=== PATIENT | male | born 1950 | race African-American/Black ===

== ENCOUNTER 2019-07-17 19:34 | Observation (INO) | payer MEDICARE ==
--- NOTE | 2019-07-17 19:39 | PDOC ---
Rapid Medical Evaluation Time Seen by Provider: 07/17/19 19:39 Medical Evaluation: 07/17/19 19:39 I have performed a brief in-person evaluation of this patient. The patient presents with a chief complaint of: chest pain Pertinent physical exam findings:stable and in NAD, non-focal I have ordered the following:labs, ekg The patient will proceed to the ED for further evaluation.
[2019-07-17 19:43] VITALS: BMI 35.4
[2019-07-17 21:23] LABS: BASO % 0.9 % (0-2.0); EOS % 6.8 % (0-4.5); HEMATOCRIT 38.9 % (35.4-49); HEMOGLOBIN 12.9 GM/dL (11.7-16.9); LYMPH % 39.9 % (8-40); MCH 28.2 pg (25.7-33.7); MCHC 33.1 g/dl (32.0-35.9); MEAN CELL VOLUME 85.3 fl (80-96); MEAN PLT VOLUME 10.3 fl (7.5-11.1); MONO % 8.4 % (3.8-10.2); PLATELET COUNT 142 K/MM3 (134-434); RBC 4.55 M/mm3 (4.00-5.60); RDW 13.8 % (11.9-15.9); WHITE BLOOD COUNT 5.4 K/mm3 (4.0-10.0)
[2019-07-17 21:40] LABS: INR 0.94 (0.83-1.09); PROTHROMBIN TIME (PATIENT) 11.1 SEC (9.7-13.0)
[2019-07-17 21:43] LABS: ACTIVATED PTT 35.7 SECONDS (25.2-36.5)
[2019-07-17 21:46] LABS: ALBUMIN 3.4 g/dl (3.4-5.0); ALK PHOS 100 U/L (45-117); ANION GAP 3 MMOL/L (8-16); BILIRUBIN,TOTAL 0.3 mg/dL (0.2-1); BLOOD UREA NITROGEN 8.5 mg/dL (7-18); CALCIUM 9.1 mg/dL (8.5-10.1); CHLORIDE 107 mmol/L (98-107); CO2 32 mmol/L (21-32); GLUCOSE,RANDOM 86 mg/dL (74-106); POTASSIUM 4.2 mmol/L (3.5-5.1); SGOT/AST 9 U/L (15-37); SGPT/ALT 19 U/L (13-61); SODIUM 142 mmol/L (136-145); TOT PROT 6.5 g/dl (6.4-8.2)
--- NOTE | 2019-07-17 22:20 | PDOC ---
History of Present Illness - General Chief Complaint: Chest Pain Stated Complaint: CHEST PAINS Time Seen by Provider: 07/17/19 19:39 History Source: Patient, Family Exam Limitations: No Limitations - History of Present Illness Initial Comments: 07/17/19 22:16 Simone Urbina is a 69M with PMH HTN, NIDDM presenting with 3 days of R sided chest pain. Patient has had a longstanding history of a sensation of pin pricks inside his R chest that comes and goes, and which he has thought of as gas and ignored. However, last 3 days has had multiple episodes concerning him enough to come to ED. Denies any inciting triggers or times of the day pain is related to, denies feeling the sensation being related to before or after eating. Denies shortness of breath, weakness, dizziness, abd pain. Says that sometimes his heart skips a beat, able to walk 2 blocks without getting tired, denies LE edema, denies injury to chest. Patient is from [facility] and arrived June 28, drives a lot. Heart has never been evaluated in the past for this. NKDA, no surgeries, denies smoking history, alcohol rarely. Past History - Past Medical History Allergies/Adverse Reactions: Allergies Allergy/AdvReac Type Severity Reaction Status Date / Time No Known Allergies Allergy Verified 07/18/19 02:11 Home Medications: Ambulatory Orders Metformin HCl [Metformin HCl ER] 500 mg PO BID 07/18/19 Ramipril [Altace] 5 mg PO DAILY 07/18/19 - Suicide/Smoking/Psychosocial Hx Smoking History: Former smoker Have you smoked in the past 12 months: Yes Information on smoking cessation initiated: No Hx Alcohol Use: No Drug/Substance Use Hx: No Cardiac Specific PMH - Complaint Specific PMHX Abdominal Aortic Aneurysm: No Angina: No Cardiac Arrhythmia: No Cardiac Stent: No GERD: No Myocardial Infarction: No Pacemaker: No Pulmonary Embolus: No Valvular Heart Disease: No Peripheral Vascular Disease: No Review of Systems - Review of Systems Able to Perform ROS?: Yes Is the patient limited Frisian proficient: No Constitutional: No: Symptoms Reported HEENTM: No: Symptoms Reported Respiratory: No: Symptoms reported Cardiac (ROS): Yes: Chest Pain, Irregular Heart Rate. No: Lightheadedness, Chest Tightness ABD/GI: No: Constipated, Diarrhea, Nausea, Vomiting : No: Burning, Dysuria, Discharge, Frequency, Flank Pain, Hematuria, Incontinence, Pain, Urgency Musculoskeletal: No: Back Pain, Neck Pain Integumentary: No: Symptoms Reported Neurological: No: Headache, Numbness, Paresthesia, Tingling Endocrine: No: Symptoms Reported Hematologic/Lymphatic: No: Symptoms Reported All Other Systems: Reviewed and Negative *Physical Exam - Vital Signs Last Vital Signs Temp Pulse Resp BP Pulse Ox 98.8 F 69 19 154/62 99 07/17/19 19:38 07/17/19 19:38 07/17/19 19:38 07/17/19 19:38 07/18/19 01:30 - Physical Exam General Appearance: Yes: Nourished, Appropriately Dressed, Obese. No: Apparent Distress HEENT: positive: EOMI, Normal ENT Inspection, Normal Voice, Symmetrical, Pharynx Normal. negative: Scleral Icterus (R), Scleral Icterus (L), Pharyngeal Erythema, Tonsillar Exudate, Tonsillar Erythema, Nasal Congestion, Rhinorrhea Neck: positive: Trachea midline, Normal Thyroid, Supple. negative: Tender, Lymphadenopathy (R), Lymphadenopathy (L) Respiratory/Chest: positive: Lungs Clear, Normal Breath Sounds, Respiratory Distress, Other (no obvious signs of injury to chest). negative: Chest Tender, Decreased Breath Sounds, Crackles, Rales, Rhonchi Cardiovascular: positive: Regular Rate, Irregularly Irregular (appreciated some possible afib). negative: Edema Gastrointestinal/Abdominal: positive: Normal Bowel Sounds, Soft, Protuberent. negative: Tender, Organomegaly, Hernia Musculoskeletal: positive: Normal Inspection. negative: CVA Tenderness, Decreased Range of Motion, Muscle Spasm, Vertebral Tenderness Extremity: positive: Normal Capillary Refill, Normal Inspection, Normal Range of Motion. negative: Tender Integumentary: positive: Normal Color, Dry, Warm Neurologic: positive: Fully Oriented, Alert, Normal Mood/Affect, Normal Response Heart Score/ECG Review - History History: Moderately suspicious - Electrocardiogram EKG: Normal - Age Age: >/= 65 - Risk Factors Risk Factors Heart Score: Yes Hx Hypertension, Yes Hx Diabetes Based on the list above the patient has:: >/=3 risk factors or Hx atherosclerotic disease - Troponin Troponin: </= normal limit - Score Heart Score - Total: 5 ED Treatment Course - LABORATORY CBC & Chemistry Diagram: 07/17/19 20:58 07/17/19 20:58 - ADDITIONAL ORDERS Additional order review: Laboratory Results 07/17/19 07/17/19 20:58 20:58 PT with INR 11.10 INR 0.94 PTT (Actin FS) 35.7 Sodium 142 Potassium 4.2 Chloride 107 Carbon Dioxide 32 Anion Gap 3 L BUN 8.5 Creatinine 1.0 Est GFR (CKD-EPI)AfAm 89.86 Est GFR (CKD-EPI)NonAf 77.54 Random Glucose 86 Calcium 9.1 Total Bilirubin 0.3 AST 9 L ALT 19 Alkaline Phosphatase 100 Creatine Kinase 84 Troponin I < 0.02 Total Protein 6.5 Albumin 3.4 07/17/19 20:58 RBC 4.55 MCV 85.3 MCHC 33.1 RDW 13.8 MPV 10.3 Neutrophils % 44.0 Lymphocytes % 39.9 Monocytes % 8.4 Eosinophils % 6.8 H Basophils % 0.9 - RADIOLOGY Radiology Studies Ordered: Category Date Time Status CHEST X-RAY PORTABLE* [RAD] Stat Radiology 07/17/19 21:28 Completed Medical Decision Making - Medical Decision Making 07/17/19 22:16 Simone Urbina is a 69M with PMH HTN, NIDDM presenting with 3 days of chest pain. Patient presentation concerning for VA vs. AAA vs. GERD vs. ACS vs. PE vs. muscle spasm. Will evaluate via: CMP CBC CP ECG CXR Initial troponins negative. ECG no ST elevations. However, has DM, obesity, HTN , and history concerning for cardiac issues, has not had good f/u care. HEART score 5, needs overnight observation for repeat troponins and ECHO. No electrolyte imbalance noted on labs concerning for muscle spasms, etc. Repeat ECG performed due to baseline artifact on 1st ECG, no concerning findings notable. 07/18/19 01:34 Discussed admission to tele/obs with Dr. Hook under Dr. Borrego. *DC/Admit/Observation/Transfer Diagnosis at time of Disposition: Chest pain Qualifiers: Chest pain type: other chest pain Qualified Code(s): R07.89 - Other chest pain - Discharge Dispostion Decision to Admit order: Yes - Referrals - Patient Instructions - Post Discharge Activity
--- NOTE | 2019-07-17 22:56 | PDOC ---
Attending Attestation - Resident Resident Name: HanschapinScott - ED Attending Attestation I have performed the following: I have examined & evaluated the patient, The case was reviewed & discussed with the resident, I agree w/resident's findings & plan - HPI HPI: 07/17/19 22:51 see resident hpi - Physicial Exam PE: 07/17/19 22:52 agree with resident exam - Medical Decision Making 07/17/19 22:54 69 yo male with chest pain and elevated Heart score thought patient has recent travel exam, history and evaluation do not suggest PE CXR showed [facility] plan for admit to medical service 07/17/19 22:58
--- NOTE | 2019-07-18 00:34 | HP ---
CHIEF COMPLAINT: R sided chest pain PCP: In [facility] HISTORY OF PRESENT ILLNESS: Simone Urbina is a 69 year old male with a past medical history of hypertension , diabetes, cataracts, "prostate issue" who presented to the ED with 3 days worth of R sided chest pain. The patient stated that over the last 3 days, he had been having sudden onset right sided chest pain that feels like a shock and sharp pain on his chest that causes him a brief moment of weakness and then becomes a dull pain and goes away in approximately 5 minutes. The pain occurs anywhere from 1 to 3 times per day and is not associated with any particular time of the day and not worsened with movement. Pain is occasionally worsened with food but not always directly associated with eating. He states that he has had this kind of pain before that he attributed to gas several months prior however now he states that the pain is worse. States that the pain is 5-6/10 at its worst. Pointed to the right side of his chest, midclavicular line when asked to point to where the pain is the worst when he gets it. He has not taken anything for alleviation of pain. Denied any recent trauma to the area or strenuous activity. Denied any episodes of syncope, loss of consciousness, falls. Does not have associated symptoms of fever, chills, shortness of breath, abdominal pain, nausea, vomiting, headaches, visual changes, dysuria, hematuria , increased belching or gas. States he does have urinary frequency and takes a medication he is unsure of for a prostate issue. ER course was notable for: (1) EKG NSR with flattening of T waves in all leads except V1, V2, V3, V4 (2) negative troponins (3) CXR with no acute pathology Recent Travel: recently travelled from [facility] to visit steven barrett on June 28 PAST MEDICAL HISTORY: as above PAST SURGICAL HISTORY: denies Social History: Smoking: former smoker, quit more than 20 years ago Alcohol: socially, rarely Drugs: denies Currently visiting sister in [place], lives in [facility] Family History: Mother- HTN Allergies No Known Allergies Allergy (Verified 07/17/19 19:43) HOME MEDICATIONS: REVIEW OF SYSTEMS CONSTITUTIONAL: brief weakness episodes Absent: fever, chills, diaphoresis, malaise, loss of appetite, weight change HEENT: Absent: rhinorrhea, nasal congestion, throat pain, throat swelling, difficulty swallowing, visual changes CARDIOVASCULAR: intermittent chest pain Absent: syncope, palpitations, irregular heart rate, lightheadedness, peripheral edema RESPIRATORY: Absent: cough, shortness of breath, dyspnea with exertion, orthopnea, wheezing, GASTROINTESTINAL: Absent: abdominal pain, abdominal distension, nausea, vomiting, diarrhea, constipation, GENITOURINARY: frequency at night Absent: dysuria, urgency, hesitancy, hematuria, flank pain MUSCULOSKELETAL: Absent: myalgia, arthralgia, joint swelling, back pain, neck pain SKIN: Absent: rash, itching, pallor HEMATOLOGIC/IMMUNOLOGIC: Absent: easy bleeding, easy bruising, lymphadenopathy, frequent infections ENDOCRINE: Absent: unexplained weight gain, unexplained weight loss, heat intolerance, cold intolerance NEUROLOGIC: Absent: headache, focal weakness or paresthesias, dizziness, unsteady gait, seizure, mental status changes, PSYCHIATRIC: Absent: anxiety, depression, suicidal or homicidal ideation, hallucinations. PHYSICAL EXAMINATION Vital Signs - 24 hr 07/17/19 19:38 Temperature 98.8 F Pulse Rate 69 Respiratory 19 Rate Blood Pressure 154/62 O2 Sat by Pulse 99 Oximetry (%) GENERAL: Awake, alert, and fully oriented, in no acute distress. HEAD: Normal with no signs of trauma. EYES: Pupils equal, round and reactive to light, extraocular movements intact, sclera anicteric, conjunctival injection. EARS, NOSE, THROAT: Oropharynx clear without exudates. Moist mucous membranes. NECK: Normal range of motion, supple without lymphadenopathy, JVD. LUNGS: Breath sounds equal, clear to auscultation bilaterally. No wheezes, and no crackles. No accessory muscle use. HEART: Regular rate and rhythm, normal S1 and S2 without murmur, rub. ABDOMEN: Soft, obese, nontender, normoactive bowel sounds, no guarding, no rebound, no masses. Increased bowel sounds in LUQ. MUSCULOSKELETAL: Normal range of motion at all joints. No bony deformities or tenderness. No CVA tenderness. UPPER EXTREMITIES: 2+ pulses, warm, well-perfused. No cyanosis. No clubbing. No peripheral edema. LOWER EXTREMITIES: 1+ pulses, warm, well-perfused. No calf tenderness. 1+ peripheral edema bilaterally. NEUROLOGICAL: Cranial nerves II-XII intact. 5/5 muscle strength bilaterally upper and lower extremities. PSYCHIATRIC: Cooperative. Good eye contact. Appropriate mood and affect. SKIN: Warm, dry, normal turgor, dry skin on feet. Laboratory Results - last 24 hr 07/17/19 07/17/19 07/17/19 20:58 20:58 20:58 WBC 5.4 RBC 4.55 Hgb 12.9 Hct 38.9 MCV 85.3 MCH 28.2 MCHC 33.1 RDW 13.8 Plt Count 142 MPV 10.3 Absolute Neuts (auto) 2.4 Neutrophils % 44.0 Lymphocytes % 39.9 Monocytes % 8.4 Eosinophils % 6.8 H Basophils % 0.9 Nucleated RBC % 0 PT with INR 11.10 INR 0.94 PTT (Actin FS) 35.7 Sodium 142 Potassium 4.2 Chloride 107 Carbon Dioxide 32 Anion Gap 3 L BUN 8.5 Creatinine 1.0 Est GFR (CKD-EPI)AfAm 89.86 Est GFR (CKD-EPI)NonAf 77.54 Random Glucose 86 Calcium 9.1 Total Bilirubin 0.3 AST 9 L ALT 19 Alkaline Phosphatase 100 Creatine Kinase 84 Troponin I < 0.02 Total Protein 6.5 Albumin 3.4 EKG--> NSR with flattening of T waves in all leads except V1, V2, V3, V4, QTc 424 ASSESSMENT/PLAN: Simone Urbina is a 69 year old male with a past medical history of hypertension , diabetes, cataracts, "prostate issue" admitted after a several day history of chest pain to rule out acute coronary syndrome in the context of the patient's multiple medical comorbidities. Chest Pain HTN HLD DM Chest Pain - right sided chest pain with negative troponins, clear chest x-ray, clinically low suspicion for ACS - Heart SCORE 4, age >65, 3+ risk factors - admitted for rule out of ACS - first EKG with no significant findings attributable to ACS - repeat EKG in the morning - first troponin negative, continue to trend - echo - cardiology consultation to consider stress test, patient never had one previously - pt will be returning to [facility] within next 2 weeks, can consider performing stress test at this facility, outpatient, or in [facility] - lipids, A1c to assess if adequately controlled for ACS risk factors - liver U/s to rule out gallstones HTN - on BP medication at home - family will bring in medication in the morning to reconcile - HCTZ 12.5mg until patient's home meds reconciled HLD - on cholesterol medication, family will bring in medication in the morning to reconcile DM - BGM ACHS - ISS FEN - no standing fluids - continue to monitor electrolytes and replete as necessary - diabetic sodium controlled diet Prophylaxis - heparin 5000 units subq tid Code - full code JAY RAMOS DO - PGY-1 Visit type - Emergency Visit Emergency Visit: Yes ED Registration Date: 07/17/19 Care time: The patient presented to the Emergency Department on the above date and was hospitalized for further evaluation of their emergent condition. - New Patient This patient is new to me today: Yes Date on this admission: 07/18/19 - Critical Care Critical Care patient: No
--- NOTE | 2019-07-18 01:01 | PN ---
Teaching Attending Note Name of Resident: Selwyn Saez ATTENDING PHYSICIAN STATEMENT I saw and evaluated the patient. Chart, data, imaging reviewed. I reviewed the resident's note and discussed the case with the resident. I agree with the resident's findings and plan as documented. SUBJECTIVE: 69yo man from [facility] with htn, dm, former smoker (quit 20 years ago) obesity c/ o 3 days of intermittent right chest pressure like pain, no radiation worse after eating, no relation to exercise. Denied family history of cardiac disease. 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 No shortness of breath, nausea, or vomiting. OBJECTIVE: Last Vital Signs Temp Pulse Resp BP Pulse Ox 98.8 F 69 19 154/62 99 07/17/19 19:38 07/17/19 19:38 07/17/19 19:38 07/17/19 19:38 07/17/19 19:38 general- nad, appears comfortable cor-s1+s2+ rrr, no murmurs appreciated chest - clear lung sounds b/l abdomen-obese, no ruq tenderness lower ext -1+ pitting edema in mcdonald b/l Abnormal Lab Results 07/17/19 07/17/19 20:58 20:58 Eosinophils % 6.8 H Anion Gap 3 L AST 9 L imaging ,ekg reviewed ASSESSMENT AND PLAN: atypical chest pain, heart score- 4. R/o out gallstones as pain worse after eating. LFTs wnl. ekg with out ischemic changes. Patient currently denied any pain. -tele/obs -echo -trend trops -cardiology eval - for cardiac stress test -liver u/s to r/o gallstones #DM -send a1c -insulin sliding scale #Eosinophilia -trend eos -no symptoms or evidence of parasitic infection at this time #HTN -HCTZ dvt ppx- heparin sc
[2019-07-18] MEDS: INSULIN SLIDING SCALE (NOVOLOG) 1 VIAL SQ SCH ×3 (06:38→17:19)
[2019-07-18 07:35] LABS: EOS % 8.2 % (0-4.5); HEMATOCRIT 38.8 % (35.4-49); HEMOGLOBIN 13.2 GM/dL (11.7-16.9); LYMPH % 37.4 % (8-40); MCH 28.7 pg (25.7-33.7); MEAN CELL VOLUME 84.4 fl (80-96); MEAN PLT VOLUME 10.3 fl (7.5-11.1); MONO % 8.2 % (3.8-10.2); NEUT % 45.2 % (42.8-82.8); PLATELET COUNT 135 K/MM3 (134-434); RDW 13.7 % (11.9-15.9); WHITE BLOOD COUNT 4.8 K/mm3 (4.0-10.0)
[2019-07-18 08:02] LABS: ANION GAP 8 MMOL/L (8-16); BLOOD UREA NITROGEN 6.3 mg/dL (7-18); CALCIUM 8.5 mg/dL (8.5-10.1); CHLORIDE 104 mmol/L (98-107); CHOLESTEROL 117 mg/dL (50-200); CO2 32 mmol/L (21-32); CREATININE 0.8 mg/dL (0.55-1.3); GLUCOSE,RANDOM 91 mg/dL (74-106); HDL CHOLESTEROL 39 mg/dL (40-60); MAGNESIUM 2.3 mg/dL (1.8-2.4); POTASSIUM 3.8 mmol/L (3.5-5.1); SODIUM 144 mmol/L (136-145); TRIGLYCERIDES 56 mg/dL (0-150)
[2019-07-18] MEDS ORDERED: HYDROCHLOROTHIAZIDE 12.5 MG CAPSULE (FP) PO SCH (10:00)
[2019-07-18] MEDS ORDERED: ENOXAPARIN NA (PORCINE) 40 MG/0.4 ML DISP.SYRIN SQ SCH (10:00)
[2019-07-18] MEDS ORDERED: HYDROCHLOROTHIAZIDE 25 MG TABLET (FP) ONE (10:05)
[2019-07-18] MEDS ORDERED: HEPARIN NA (PORCINE) 5,000 UNITS/ML 1ML VIAL ONE (10:06)
[2019-07-18 12:24] VITALS: TEMP 97.8
--- NOTE | 2019-07-18 12:24 | EKG ---
Test Reason : Blood Pressure : / mmHG Vent. Rate : 060 BPM Atrial Rate : 060 BPM P-R Int : 142 ms QRS Dur : 082 ms QT Int : 424 ms P-R-T Axes : 059 017 050 degrees QTc Int : 424 ms NORMAL SINUS RHYTHM WITH SINUS ARRHYTHMIA NONSPECIFIC T WAVE ABNORMALITY ABNORMAL ECG WHEN COMPARED WITH ECG OF 17-JUL-2019 20:02, NO SIGNIFICANT CHANGE WAS FOUND Confirmed by YUMIKO AGUILAR, JUAN ([id number]) on 07/18/2019 12:24:02 PM Referred By: Confirmed By:JUAN CALDERON MD
--- NOTE | 2019-07-18 12:25 | EKG ---
Test Reason : Blood Pressure : / mmHG Vent. Rate : 060 BPM Atrial Rate : 060 BPM P-R Int : 136 ms QRS Dur : 078 ms QT Int : 402 ms P-R-T Axes : 059 001 027 degrees QTc Int : 402 ms NORMAL SINUS RHYTHM NONSPECIFIC T WAVE ABNORMALITY ABNORMAL ECG NO PREVIOUS ECGS AVAILABLE Confirmed by YUMIKO AGUILAR, JUAN ([id number]) on 07/18/2019 12:25:13 PM Referred By: Confirmed By:JUAN CALDERON MD
[2019-07-18] MEDS: HEPARIN NA (PORCINE) 5,000 UNITS/ML 1ML VIAL SQ SCH ×2 (12:42→14:43)
[2019-07-18] MEDS ORDERED: REGADENOSON 0.4 MG/5 ML PRE-FILLED SYRINGE IVPUSH ONE ×2 (13:00)
[2019-07-18 14:44] VITALS: BP 130/73; PULSE 65
--- NOTE | 2019-07-18 14:58 | ECHO ---
Name: ALEE CIFUENTES Exam:Adult Echocardiogram Study Date: 07/18/2019 10:10 AM Age: 69 yrs Reason For Study: Chest pain Height: 69 in Weight: 240 lb BSA: 2.2 m2 MMode/2D Measurements & Calculations IVSd: 1.1 cm Ao root diam: 3.1 cm LVIDd: 4.6 cm LA dimension: 4.0 cm LVIDs: 3.0 cm LVPWd: 0.95 cm EDV(Teich): 97.3 ml LVOT diam: 2.2 cm ESV(Teich): 33.7 ml Doppler Measurements & Calculations MV E max terry: 96.7 cm/sec Ao V2 max: 132.6 cm/sec MV A max terry: 22.2 cm/sec Ao max P.0 mmHg MV E/A: 4.4 Ao V2 mean: 90.0 cm/sec MV dec time: 0.23 sec Ao mean P.8 mmHg Ao V2 VTI: 33.6 cm SIMONE(I,D): 3.1 cm2 SIMONE(V,D): 2.9 cm2 LV V1 max P.0 mmHg SV(LVOT): 104.6 ml LV V1 mean P.2 mmHg LV V1 max: 100.2 cm/sec LV V1 mean: 71.0 cm/sec LV V1 VTI: 27.2 cm TR max terry: 222.9 cm/sec Med Peak E' Terry: 4.5 cm/sec TR max P.2 mmHg Med E/e': 21.6 Lat Peak E' Terry: 7.8 cm/sec Lat E/e': 12.4 Procedure A complete two-dimensional transthoracic echocardiogram was performed (2D, M-mode, Doppler and color flow Doppler). Left Ventricle The left ventricular size, thickness and function are normal. The left ventricular ejection fraction is normal. Ejection Fraction = 60-65%. The left ventricular wall motion is normal. Right Ventricle The right ventricle is normal in size and function. Atria Normal left and right atrial size and function. Mitral Valve There is no mitral regurgitation noted. Tricuspid Valve There is trace tricuspid regurgitation. There was insufficient TR detected to calculate RV systolic p ressure. Aortic Valve No hemodynamically significant valvular aortic stenosis. No aortic regurgitation is present. Pulmonic Valve There is no pulmonic valvular regurgitation. Great Vessels The aortic root is normal size. Pericardium/Pleura There is no pericardial effusion. Interpretation Summary The left ventricular size, thickness and function are normal The right ventricle is normal in size and function. There is trace tricuspid regurgitation. MD Josep Price 07/18/2019 02:57 PM
--- NOTE | 2019-07-18 15:14 | CON.CARD ---
Consult Consult Specialty:: Cardiology Referred by:: Larry Borrego Reason for Consultation:: Chest pain - History of Present Illness Chief Complaint: chest pain History of Present Illness: 69 year old male with a pmhx of dm, htn, and hld who presents with chest pain. Patient having intermittent right sided chest pain mild that comes and goes. Not exertional and non radiating. No sob or palpitations associated. Some dyspnea on exertion noted as well. No pnd, orthopnea, or edema. No palpitations. No near syncope. - History Source History Provided By: Patient, Medical Record - Alcohol/Substance Use Hx Alcohol Use: No - Smoking History Smoking history: Former smoker Have you smoked in the past 12 months: Yes Home Medications - Allergies Allergies/Adverse Reactions: Allergies Allergy/AdvReac Type Severity Reaction Status Date / Time ibuprofen Allergy Verified 07/18/19 15:02 - Home Medications Home Medications: Ambulatory Orders Acetaminophen 500 mg PO QID 07/18/19 Amlodipine Besylate [Norvasc -] 10 mg PO DAILY 07/18/19 Aspirin Coated [Ecotrin -] 81 mg PO DAILY 07/18/19 Atorvastatin Ca [Lipitor] 40 mg PO HS 07/18/19 Doxazosin Mesylate 2 mg PO DAILY 07/18/19 Metformin HCl [Metformin HCl ER] 500 mg PO BID 07/18/19 Patient Specific Medications [Pt Own Med Drawer] 1 tab PO DAILY 07/18/19 Ramipril [Altace] 5 mg PO DAILY 07/18/19 Vitamin B Complex [B Complex] 1 tab PO DAILY 07/18/19 metFORMIN HCL [Metformin HCl] 500 mg PO BID 07/18/19 Vital Signs: Vital Signs Temperature 97.8 F 07/18/19 08:20 Pulse Rate 65 07/18/19 14:43 Respiratory Rate 18 07/18/19 14:43 Blood Pressure 130/73 07/18/19 14:43 O2 Sat by Pulse Oximetry (%) 96 07/18/19 14:43 Constitutional: Yes: No Distress Neck: Yes: Supple Respiratory: Yes: CTA Bilaterally Gastrointestinal: Yes: Soft Cardiovascular: Yes: Regular Rate and Rhythm JVD: No Carotid Bruit: No PMI: Non-Displaced Heart Sounds: Yes: S1, S2 Murmur: No: Systolic Murmur Edema: No - Other Data Labs, Other Data: CBC, BMP 07/18/19 06:30 07/18/19 06:30 INR, PTT INR 0.94 (0.83-1.09) 07/17/19 20:58 Troponin, BNP 07/17/19 07/18/19 07/18/19 20:58 01:43 06:30 Troponin I < 0.02 < 0.02 < 0.02 Troponin, BNP 07/17/19 07/18/19 07/18/19 20:58 01:43 06:30 Troponin I < 0.02 < 0.02 < 0.02 Imaging - Results Chest X-ray: Report Reviewed EKG: Image Reviewed Problem List - Problems (1) Chest pain Code(s): R07.9 - CHEST PAIN, UNSPECIFIED Qualifiers: Chest pain type: other chest pain Qualified Code(s): R07.89 - Other chest pain; R07.8 - Other chest pain Assessment/Plan 69 year old male with a pmhx of dm, htn, and hld who presents with chest pain. Patient having intermittent right sided chest pain mild that comes and goes. Not exertional and non radiating. No sob or palpitations associated. Some dyspnea on exertion noted as well. No pnd, orthopnea, or edema. No palpitations. No near syncope. 1) Atypical chest pain -EKG: sinus rhythm at 60bpm, nl axis, nonspecific t wave abnormalities. No acute ischemic ecg changes. CE's negative -Echocardiogram normal LVEF and no significant valve disease NST with normal myocardial perfusion. No events on tele. No signs of chf on exam, cxr, or bnp level No further cardiac testing at this time. Aspirin/statin and bp control. Follow up with Dr. Hill as an outpatient [phone]
--- NOTE | 2019-07-18 16:26 | PN ---
Teaching Attending Note Name of Resident: Jhoana Temple ATTENDING PHYSICIAN STATEMENT I saw and evaluated the patient. I reviewed the resident's note and discussed the case with the resident. I agree with the resident's findings and plan as documented. SUBJECTIVE:cp has resolved. denies Cp, SOB, fever, chills, N/v/C/D OBJECTIVE: Last Vital Signs Temp Pulse Resp BP Pulse Ox 97.8 F 65 18 130/73 96 07/18/19 08:20 07/18/19 14:43 07/18/19 14:43 07/18/19 14:43 07/18/19 14:43 General NAD CV S1 S2 RRR no murmur/rub/gallop Lungs CTA B/L no wheezing/rales/rhonchi ASSESSMENT AND PLAN: 69yo M with PMH HTN, DM, and former smoker presented to the ER wtih CP x3 days 1. r/o ACS- trop neg x3. Echo and stress test done and are negative. seen by cardio. can d/c and follow up as outpatient
--- NOTE | 2019-07-18 21:13 | DS ---
Physical Exam: SUBJECTIVE: Patient seen and examined. Denies any current chest pain, SOB, n/v. OBJECTIVE: Vital Signs Period Temp Pulse Resp BP Sys/Duong Pulse Ox Last 24 Hr 97.8 F-98.1 F 54-68 18-20 128-153/53-95 96-99 PHYSICAL EXAM GENERAL: The patient is awake, alert, and fully oriented, in no acute distress. HEAD: Normal with no signs of trauma. EYES: PERRL, extraocular movements intact, sclera anicteric, conjunctiva clear. ENT: Ears normal, nares patent, oropharynx clear without exudates, moist mucous membranes. NECK: Trachea midline, full range of motion, supple. LUNGS: Breath sounds equal, clear to auscultation bilaterally, no wheezes, no crackles, no accessory muscle use. HEART: Regular rate and rhythm, S1, S2 without murmur, rub or gallop. ABDOMEN: Soft, nontender, nondistended, normoactive bowel sounds, no guarding, no rebound, no hepatosplenomegaly, no masses. EXTREMITIES: 2+ pulses, warm, well-perfused, no edema. NEUROLOGICAL: Cranial nerves II through XII grossly intact. Normal speech, gait not observed. PSYCH: Normal mood, normal affect. SKIN: Warm, dry, normal turgor, no rashes or lesions noted. LABS Laboratory Results - last 24 hr 07/17/19 07/17/19 07/17/19 20:58 20:58 20:58 WBC 5.4 RBC 4.55 Hgb 12.9 Hct 38.9 MCV 85.3 MCH 28.2 MCHC 33.1 RDW 13.8 Plt Count 142 MPV 10.3 Absolute Neuts (auto) 2.4 Neutrophils % 44.0 Lymphocytes % 39.9 Monocytes % 8.4 Eosinophils % 6.8 H Basophils % 0.9 Nucleated RBC % 0 PT with INR 11.10 INR 0.94 PTT (Actin FS) 35.7 Sodium 142 Potassium 4.2 Chloride 107 Carbon Dioxide 32 Anion Gap 3 L BUN 8.5 Creatinine 1.0 Est GFR (CKD-EPI)AfAm 89.86 Est GFR (CKD-EPI)NonAf 77.54 POC Glucometer Random Glucose 86 Hemoglobin A1c % Calcium 9.1 Magnesium Total Bilirubin 0.3 AST 9 L ALT 19 Alkaline Phosphatase 100 Creatine Kinase 84 Troponin I < 0.02 Total Protein 6.5 Albumin 3.4 Triglycerides Cholesterol Total LDL Cholesterol HDL Cholesterol TSH 07/18/19 07/18/19 07/18/19 01:43 06:30 06:30 WBC 4.8 RBC 4.60 Hgb 13.2 Hct 38.8 MCV 84.4 MCH 28.7 MCHC 34.0 RDW 13.7 Plt Count 135 MPV 10.3 Absolute Neuts (auto) 2.2 Neutrophils % 45.2 Lymphocytes % 37.4 Monocytes % 8.2 Eosinophils % 8.2 H Basophils % 1.0 Nucleated RBC % 0 PT with INR INR PTT (Actin FS) Sodium 144 Potassium 3.8 Chloride 104 Carbon Dioxide 32 Anion Gap 8 BUN 6.3 L Creatinine 0.8 Est GFR (CKD-EPI)AfAm 107.13 Est GFR (CKD-EPI)NonAf 92.44 POC Glucometer Random Glucose 91 Hemoglobin A1c % Calcium 8.5 Magnesium 2.3 Total Bilirubin AST ALT Alkaline Phosphatase Creatine Kinase Troponin I < 0.02 < 0.02 Total Protein Albumin Triglycerides 56 Cholesterol 117 Total LDL Cholesterol 67 HDL Cholesterol 39 L TSH 1.08 07/18/19 07/18/19 07/18/19 06:30 06:35 17:17 WBC RBC Hgb Hct MCV MCH MCHC RDW Plt Count MPV Absolute Neuts (auto) Neutrophils % Lymphocytes % Monocytes % Eosinophils % Basophils % Nucleated RBC % PT with INR INR PTT (Actin FS) Sodium Potassium Chloride Carbon Dioxide Anion Gap BUN Creatinine Est GFR (CKD-EPI)AfAm Est GFR (CKD-EPI)NonAf POC Glucometer 90 155 Random Glucose Hemoglobin A1c % 6.6 H Calcium Magnesium Total Bilirubin AST ALT Alkaline Phosphatase Creatine Kinase Troponin I Total Protein Albumin Triglycerides Cholesterol Total LDL Cholesterol HDL Cholesterol TSH HOSPITAL COURSE: Mr. Urbina is a 69y/o male with HTN, DM, cataracts presents after intermittent right sided chest pain x 3 days. There is no association with activity. Cardiac exam was unremarkable. EKG showed non-specific T wave flattening, and trops were negative x2. Echo showed normal EF, and stress test had no myocardial ischemia. No significant events on tele. He is cleared for d/c and referred to Dr. Hill for out pt f/u. Pt is to continue ASA, statin, and HTN meds. Date of Admission:07/17/19 Date of Discharge: 07/18/19 Minutes to complete discharge: 35 Discharge Summary Reason For Visit: CHEST PAINS Current Active Problems Chest pain (Acute) Diabetes mellitus (Chronic) Hypertension (Chronic) Condition: Stable - Instructions Diet, Activity, Other Instructions: Hospital Visit: You were admitted to the hospital for chest pain. The stress test of your heart was performed, with normal results. You were evaluated by the charter representative and are cleared for discharge home. Medications: You may continue your home medications as directed. Follow up: Please follow up with Dr. Hill in the next week to discuss further testing that may need to be done. Please follow up with your primary care doctor in the next week to discuss your diabetes. Your hemoglobin A1C, the test that helps with diabetes management, was slightly elevated at 6.6. You may need medication adjustments, so please follow up with your primary care doctor within the next week. Monitor your diet in the meantime , and do not eat foods that contain a lot of sugar, like cakes and soda. Other Instructions: Return to the nearest emergency room if you experience worsening symptoms, chest pain, shortness of breath, dizziness, nausea and vomiting, or loss of consciousness. Referrals: Antonio Barros MD [Staff Physician] - Kevin Hill MD [Staff Physician] - Disposition: HOME - Home Medications Comprehensive Discharge Medication List: Ambulatory Orders Acetaminophen 500 mg PO QID 07/18/19 Amlodipine Besylate [Norvasc -] 10 mg PO DAILY 07/18/19 Aspirin Coated [Ecotrin -] 81 mg PO DAILY 07/18/19 Atorvastatin Ca [Lipitor] 40 mg PO HS 07/18/19 Doxazosin Mesylate 2 mg PO DAILY 07/18/19 Ramipril [Altace] 5 mg PO DAILY 07/18/19 Vitamin B Complex [B Complex] 1 tab PO DAILY 07/18/19 metFORMIN HCL [Metformin HCl] 500 mg PO BID 07/18/19 This patient is new to me today: Yes Date on this admission: 07/17/19 Emergency Visit: Yes ED Registration Date: 07/17/19 Care time: The patient presented to the Emergency Department on the above date and was hospitalized for further evaluation of their emergent condition. Critical Care patient: No - Discharge Referral Referred to [facility] Med P.C.: No ATTENDING PHYSICIAN STATEMENT I saw and evaluated the patient. I reviewed the resident's note and discussed the case with the resident. I agree with the resident's findings and plan as documented. SUBJECTIVE: OBJECTIVE: ASSESSMENT AND PLAN:
--- NOTE | 2019-07-19 14:11 | EKG ---
Test Reason : Blood Pressure : / mmHG Vent. Rate : 056 BPM Atrial Rate : 056 BPM P-R Int : 158 ms QRS Dur : 086 ms QT Int : 424 ms P-R-T Axes : 058 -07 083 degrees QTc Int : 409 ms SINUS BRADYCARDIA NONSPECIFIC T WAVE ABNORMALITY ABNORMAL ECG WHEN COMPARED WITH ECG OF 17-JUL-2019 23:00, NO SIGNIFICANT CHANGE WAS FOUND Confirmed by OMID SHINE MD ([id number]) on 07/19/2019 2:11:06 PM Referred By: Confirmed By:OMID SHINE MD
== END 2019-07-18 20:30 | disposition home or self-care (01) ==
LOC: JER 19:34 → JERBED 22:24
PROVIDERS: ADMIT Internal Medicine; ATTEND Internal Medicine
PROC: 3E013GC Introduction of Other Therapeutic Substance into Subcutaneous Tissue, Percutaneous Approach (ICD-10-PCS; principal; 2019-07-17)
DX: R07.89 Other chest pain (principal); D72.1 Eosinophilia; I10 Essential (primary) hypertension; E78.5 Hyperlipidemia, unspecified; E11.9 Type 2 diabetes mellitus without complications; Z79.84 Long term (current) use of oral hypoglycemic drugs; Z87.891 Personal history of nicotine dependence
CPT/HCPCS: 36415; 71045-TC-FY; 76705-TC; 78452-TC; 80048; 80053; 80061; 82550; 82962; 83036; 83721; 83735; 84443; 84484; 85025; 85610; 85730; 93005; 93010; 93017; 93306-TC; 96372; 99285-25; A9502; G0378; J1245; J1644